=== PATIENT | male | born 1970 | race Hispanic/Latino ===

== ENCOUNTER 2019-07-10 06:42 | Day surgery (SDC) | payer OTHER ==
[~2019-07-10] VITALS: Ht 170.2 cm; Wt 88.5 kg
[~2019-07-10 06:42] MED LIST: SODIUM CHLORIDE 0.9% 1000ML 1,000 ML IV ONE
[2019-07-10 08:16] VITALS: BP 122/72
[2019-07-10] MEDS ORDERED: MV-M1TAB20 PO (08:29)
[2019-07-10] MEDS ORDERED: CYAN-35 PO (08:29)
[2019-07-10] MEDS ORDERED: METF-446 PO (08:29)
[2019-07-10] MEDS ORDERED: LEVO75TA6 PO (08:29)
[2019-07-10] MEDS ORDERED: PROPOFOL 10 MG/ML 20ML VIAL IV ONE ×2 (08:40)
[2019-07-10] MEDS ORDERED: FENTANYL CITRATE PF 50 MCG/1 ML 2ML VIAL ONE (08:41)
[2019-07-10] MEDS ORDERED: GLYCOPYRROLATE 0.2 MG/ML 5 ML VIAL ONE (08:41)
[2019-07-10 09:02] VITALS: BP 95/56
[2019-07-10 09:07] VITALS: BP 95/61
[2019-07-10 09:12] VITALS: BP 106/62
[2019-07-10 09:17] VITALS: BP 102/65
[2019-07-10 09:22] VITALS: BP 112/69
== END 2019-07-10 09:37 | disposition home or self-care (01) ==
LOC: ENDO 06:42 → DAH 06:42 → ENDO 09:37
PROVIDERS: ATTEND Internal Medicine Gastroenterology
DX: R10.9 Unspecified abdominal pain (principal); K29.70 Gastritis, unspecified, without bleeding; K22.8 Other specified diseases of esophagus; E11.9 Type 2 diabetes mellitus without complications; E03.9 Hypothyroidism, unspecified; Z79.84 Long term (current) use of oral hypoglycemic drugs; Z79.899 Other long term (current) drug therapy; Z96.659 Presence of unspecified artificial knee joint
CPT/HCPCS: 43237; 43239; 82948 ×2; 88305; A4215; A4221; A4222; A4223; A4606; A4615; A4663; J2704 ×2; J3010; J3490; J7030